=== PATIENT | male | born 1945 | race Caucasian/White ===

== ENCOUNTER 2019-02-05 09:45 | Inpatient (IN) | payer MEDICARE, SELFPAY ==
[2019-01-23 08:51] VITALS: BMI 27.6
[2019-02-05] VITALS (13 sets, daily range): BP systolic 100–134; BP diastolic 53–83; PULSE 61–75; RESP 12–20; TEMP 35.8–36.8; O2SAT 97–99; BMI 25.9
--- NOTE | 2019-02-05 | DI.RAD.S_ITS ---
PROCEDURE: XR HIP W PEL IF DONE LT 2V INDICATIONS: TOTAL HIP ARTHROPLASTY ANTERIOR APPROACH TECHNIQUE: 2 view(s) of the hip acquired. COMPARISON: None. FINDINGS: Bones: Patient is undergoing left total hip arthroplasty, with initial hardware components in expected positions. The hip joint appears congruent. The visualized bony structures appear intact. Soft tissues: Overlying postoperative changes are noted. No suspicious soft tissue densities. IMPRESSION: Normal anatomic alignment in preparation for placement of the final components of the left total hip arthroplasty. Dictated by: Quinn Cortes M.D. on 02/05/2019 at 17:47 Approved by: Quinn Cortes M.D. on 02/05/2019 at 17:48
--- NOTE | 2019-02-05 09:18 | DI.RAD.S_ITS ---
PROCEDURE: XR HIP W PEL IF DONE LT 2V INDICATIONS: total left hip TECHNIQUE: AP pelvis and lateral view of the left hip acquired. COMPARISON: [facility], YESSICA, XR HIP W PEL IF DONE LT 2V, 02/05/2019, 14:29. FINDINGS: Bones: Patient is status post left hip arthroplasty, with hardware components in expected positions. The hip joint appears congruent. The visualized bony structures appear intact. Soft tissues: Overlying postoperative changes are noted. No suspicious soft tissue densities. IMPRESSION: Normal alignment established after placement of spinal components of left total hip arthroplasty. Dictated by: Quinn Cortes M.D. on 02/05/2019 at 17:49 Approved by: Quinn Cortes M.D. on 02/05/2019 at 17:49
[2019-02-05] MEDS: LACTATED RINGERS 1,000 ML 42 ML IV ×2 (10:44→15:57)
[2019-02-05] MEDS: VANCOMYCIN 1,000 MG/200 ML PIGGYBACK 200 MG IV (10:44)
[2019-02-05] MEDS: MELOXICAM 7.5 MG TABLET 15 MG PO (10:54)
[2019-02-05] MEDS: PREGABALIN 75 MG CAPSULE PO (10:55)
[2019-02-05] MEDS: ACETAMINOPHEN 325 MG TABLET 975 MG PO ×2 (10:55→22:53)
--- NOTE | 2019-02-05 11:39 | PM.PREOP ---
Pre-operative Note Interval Note History & Physical reviewed/Exam performed by Physician: Yes Changes to H&P: No
--- NOTE | 2019-02-05 11:42 | P.OP_ITS ---
Operative Date/Time/Diagnoses Date of procedure: 02/05/19 Time of procedure: 11:59 Pre-op diagnosis: left hip OA Post-op diagnosis: same Procedure & Clinicians Procedure: Left total hip arthroplasty anterior approach Same procedure as scheduled: Yes Indications: The patient has had progressively worsening left hip pain with radiographic changes consistent with arthritis. Non-operative management has failed and the patient has requested total hip replacement. The risks, benefits and alternatives to surgery were discussed with the patient prior to proceeding. Risks discussed included, but were not limited to, failure to relieve pain, leg length discrepancy, dislocation, stiffness, infection, nerve damage, deep venous thrombosis, pulmonary embolism, stroke, coma, heart attack, permanent paralysis and , as well as the potential need for eventual revision of the prosthetic. Surgeon: Clary Chance Boating Safety Officer: Gary Hemphill Anesthesia Type: General and Spinal Operative Notes Findings: Severe left hip osteoarthritis, good quality bone, acceptable stability Closure Type: primary Specimen(s): none sent Prosthetic devices, grafts, tissues, transplants, or devices: Chance [employer] Nephew 54 R3 cup, size 7 standard offset anthology stem, 36 by +4 femoral head, 125 mm screw Estimated Blood Loss (mL): 250 Blood products transfused: none Procedure in detail: The patient was brought to the operating room. Patient was carefully positioned in the supine position. Time-out was performed and antibiotics were given. Anesthesia was induced. He was positioned in the on the table in order to allow hyperextension of the hip. The left lower extremity was prepped and draped in a standard sterile fashion. An anterior left hip incision was made 1 fingerbreadth lateral to the anterior superior iliac spine and extended distally towards the greater trochanter. Dissection was carried out through skin and subcutaneous tissues. The skin and subcutaneous tissues were carefully injected with Marcaine with epi. Superficial hemostasis was achieved. The fascia over the tensor fascia juma was defined and incised with a knife. Two Allis clamps were used to grasp the fascia. Tensor fascia juma was retracted laterally. A gelpi retractor was placed. Dissection was carried out down along the neck. The circumflex vessels were carefully identified and cauterized with the Aqua Mantis. There was good visualization of the femoral neck. A Cobra was placed superior to the neck and the gluteus fibers were carefully stripped from that superior aspect of the capsule. A 2nd retractor was placed along the inferior aspect of the neck. The rectus insertion along the capsule was partially released. A 3rd retractor that was then gently placed over the rim of the acetabulum under the rectus. Capsule was carefully incised and released from the intertrochanteric line circumferentially superior to the mid sagittal line and inferiorly to the mid sagittal line until the lesser trochanter was palpable. A tag stitch was placed both in the superior and inferior limb of the capsular insertion. Along the acetabulum capsule was also released up to the mid sagittal 12:00 position. A portion of the labrum was resected. A saw was used to perform an osteotomy at the level of the intertrochanteric line and the junction of the superior femoral neck leaving approximately 1 finger breath of residual inferior neck above the lesser trochanter. A 2nd cut was made along the femoral neck at the base of the head and a napkin ring of neck was removed. Corkscrew was placed in the femoral head and the head was removed without difficulty. Retractors were then repositioned around the acetabulum. Residual labrum was resected and additional osteophytes were removed. A reamer that was 4 mm below the templated size was placed by hand in the acetabulum and it was reamed to centralize the acetabulum. It was then reamed up to 2 under the templated size and fluoroscopy was brought in to confirm the position of the reaming and depth of reaming. I reamed 1 under the anticipated size.. A trial cup was placed and noted that it was appropriately sized and fluoroscopy confirmed position and depth. The component was open and inserted without difficulty fluoroscopic imaging was used to confirm that the cup had been adequately seated and was well positioned. A single supplemental screw was placed to further secure the cup. Neutral poly liner was placed. The cup was tested and noted to be stable. Attention was then directed to the femur. The femur was gently hyperextended additional capsular release was performed as needed in order to allow adequate visualization of the proximal femur with elevation of the femur. Patient was placed in a hyperextended slightly abducted position with maximum external rotation. Box osteotome was used to check for any residual neck as well as sclerotic bone along the trochanter. [place]owa pepper was placed in the femur. Additional broaching was performed. Canal finder was used to determine the alignment of the canal and position. Size 1 broach was placed. The canal was then appropriately broached up to the templated size as long as there was adequate stability of the broach and serial advancement of the broach without excessive impingement. Specific attention was directed at avoiding varus attempting to direct the distal aspect of the broach more anteriorly and avoidin g excessive anteversion. Trial reduction showed acceptable range of motion, good stability, no posterior impingement, mu-ism of leg length and appropriate lateral shuck. I also hyperflexed the hip and checked that there was no impingement anteriorly and there was good stability with flexion, abduction and internal rotation. Marcaine and Exparel were injected.. The stem was placed without difficulty. Repeat trial reduction and x-ray showed acceptable overall position, length, and no evidence of the femoral fracture. Final head was placed. Wound was meticulously irrigated with normal saline. The hip was reduced and additional Exparel and Marcaine were injected. The capsule was closed with interrupted nonabsorbable sutures. The fascia of the tensor was closed with interrupted and running Vicryl. No drain was placed. Any tensor fascia juma muscle that appeared to be contused or injured which was a minimal amount was carefully resected. Capsule around the tensor was injected with Exparel and Marcaine. The skin was closed with barbed stitches for the subcutaneous tissue and skin. We also used surgical glue. The wound was dressed sterilely. It was meticulously irrigated with normal saline. Patient was transferred to recovery room in satisfactory condition. Complications: none Condition: stable Disposition: Acute Care Plan for aftercare: The patient will be maintained on a standard total hip replacement protocol with weight bearing as tolerated and anterior hip precautions. The patient will receive Aspirin and sequential compression devices for DVT prophylaxis. The patient will be discharged home when safe for the home environment.
[2019-02-05] MEDS: CEFAZOLIN 2 GM/100 ML FROZ.PIGGY IV ×2 (12:35→22:53)
--- NOTE | 2019-02-05 13:25 | SUR.OPER ---
Supine on [place] table, head on the foam. Iliac crest at the bottom of the table. Right arm secured on arm board <90 degrees abduction, left arm padded and secured across chest. Both feet wrapped in web roll and coban and secured in boots.
[2019-02-05] MEDS: BUPIVACAINE 0.25% W/ EPI 30 ML VIAL 60 ML INJ (13:34)
[2019-02-05] MEDS: BUPIVACAINE LIPOSOME 266 MG/20 ML VIAL INJ (13:35)
[2019-02-05] MEDS: TRANEXAMIC ACID 1,000 MG VIAL 1000 MG INJ ×2 (13:36→15:58)
--- NOTE | 2019-02-05 14:47 | SUR.OPER ---
Pt has a black toe nail on big toe, observed during positioning.
[2019-02-05] MEDS: LACTATED RINGERS 1,000 ML 125 ML IV (19:02)
[2019-02-05] MEDS: DOCUSATE 100 MG CAPSULE PO (22:53)
[2019-02-05] MEDS: ASPIRIN EC 81 MG TABLET PO (22:53)
--- NOTE | 2019-02-05 23:26 | PC.NURSE ---
Evening shift: Pt. received from PACU approximately 1720. A&Ox3. VSS. Denies pain. Notes decreased sensation and movement below the waist extending down both lower extremities. Pulses intact, good cap refill, absence of edema. [place] patient. Pt stood at bedside with walker and RN assist. Continued to deny pain. Moved well and bore weight appropriately. No urge to urinate post-operatively. Bladder scan demonstrated 610ml. Attempted to straight cath with 16 Fr but was unable to advance catheter. Attempted again with 14 Fr Coude; still unable to advance. specimen collector was successful in placing in-and-out, with 825 ml output. Pt. tolerated well.
[2019-02-06 00:26] VITALS: BP 107/74; PULSE 71; RESP 18; TEMP 36.4; O2SAT 97
--- NOTE | 2019-02-06 01:04 | PC.NURSE ---
Addendum entered by Kaitlin Driscoll R.N. 02/06/19 06:35: Has been unable to urinate all night; even sat on edge of bed without success. Gotten up to bathroom and was able to urinated 350cc. Addendum entered by Kaitlin Driscoll R.N. 02/06/19 05:08: 0400 Gotten up out of bed and walked with walker 3 times around room with walker and 2 assist. Is unsteady on feet. Denies any pain. Original Note: Patient is alert and oriented but seeming a little anxious. Breath sounds CTA with RA sat of 97-99%; on continuous pulse oximetry per epidural protocol. HRR. Denies nausea. BT hypoactive; states he is passing flatus. Problem with urinary retention on previous shift necessitating straight cath and has not voided since. Aquacel dressing to anterior left hip is CDI. Denies pain but accepted ice pack for comfort. States he still has residual numbness in left anterior thigh and groin area but otherwise CMS intact; does have chronic numbness in anterior left foot which is unchanged. Is able to lift left leg off bed even against resistance. Moving self in bed. Wide awake watching TV and working with I.S. SCD's are on. Fall risk score is moderate; bed alarm is activated.
[2019-02-06] MEDS: LACTATED RINGERS 1,000 ML 125 ML IV (03:09)
[2019-02-06 03:40] VITALS: BP 108/75; PULSE 62; RESP 20; TEMP 36.6; O2SAT 99
[2019-02-06] MEDS: CEFAZOLIN 2 GM/100 ML FROZ.PIGGY IV (05:03)
[2019-02-06 05:57] LABS: Hematocrit 35.6 % (41-53)
--- NOTE | 2019-02-06 07:36 | P.DS_ITS ---
History of Present Illness Date Patient Seen: 02/06/19 Time Patient Seen: 07:35 Chief complaint: [id number] Narrative: Please see HPI previously recorded in chart. Discharge Providers Date of admission: 02/05/19 09:45 Discharge Date: 02/06/19 Primary care physician: Rolly Giang MD Consults: 01/23/19 09:43 Consult to Project Internship Routine Comment: Pt doesn't drive, recovering recent stroke 02/05/19 09:18 Consult to Anesthesiology Routine Comment: Consulting Provider: Anesthesiologist Reason for consultation: Regional block for post operative pain control 02/05/19 18:12 Consult to Discharge Planning Routine Comment: Consult to Physical Therapy Evaluate & Treat Comment: Physician Instructions: post op TOREY protocol Consult to Respiratory Therapy Evaluate & Treat Comment: Physician Instructions: Evaluate and treat Discharge provider: Drai Hoff PA-C Summary Discharge Diagnosis: s/p right anterior hip arthroplasty Hospital Course: The patient has had progressively worsening left hip pain with radiographic changes consistent with arthritis. Non-operative management has failed and the patient has requested total hip replacement. The risks, benefits and alternatives to surgery were discussed with the patient prior to proceeding. Risks discussed included, but were not limited to, failure to relieve pain, leg length discrepancy, dislocation, stiffness, infection, nerve damage, deep venous thrombosis, pulmonary embolism, stroke, coma, heart attack, permanent paralysis and , as well as the potential need for eventual revision of the prosthetic. After informed consent was obtained patient was taken to the operating room and underwent right anterior hip replacement with Dr. Chance which he tolerated well with no complications. Pain has been minimal and well controlled. He has mobilized about the room and to the bathroom. He has a good support system at [facility]. Voiding independently. He has supply of all of his post operative medications. He is medically stable for discharge to home later today pending clearance by physical therapy. Status at Discharge Cognitive/behavioral status at discharge: oriented Functional status at discharge: uses cane/walker Overall status at discharge: patient is progressing back to baseline Exam Vital Signs (past 8 hours): - 02/06/19 00:26 02/06/19 03:40 Temperature 97.5 F L 97.8 F Pulse Rate 71 62 Respiratory Rate 18 20 Blood Pressure 107/74 108/75 Pulse Oximetry 97 99 Oxygen Delivery Method Room Air Narrative Exam Narrative: 73 year old male resting comfortably in bed. Alert and oriented in no acute distress. Dressing in place over right hip is CDI. SILT. Intact flexion/extension of the ankle. Symmetric pedal pulses. Calves soft, compressible. Objective Labs Result Diagrams: 02/06/19 05:49 Labs: Laboratory Results - last 24 hr 02/06/19 05:49 Hgb 12.0 L Hct 35.6 L Discharge Plan Discharge Plan Patient Disposition: Home Discharge comment: After stairs with PT Discharge Med Rec/Prescriptions Prescriptions: New aspirin 81 mg Tablet,Delayed Release (Dr/Ec) 81 mg PO BID Qty: 60 RF: 0 oxycodone 5 mg Tablet 5 mg PO Q3HR PRN (Reason: Pain, Moderate (4-6)) Qty: 1 RF: 0 Continued doxycycline hyclate 100 mg Capsule 100 mg PO DAILY RF: 0 meloxicam 15 mg Tablet 15 mg PO DAILY RF: 0 acetaminophen [Tylenol Extra Strength] 500 mg Tablet 1,000 mg PO DAILY RF: 0 finasteride 5 mg Tablet 5 mg PO DAILY RF: 0 Follow up/Referrals: Rolly Giang MD [Primary Care Provider] - Clary Chance MD [Physician] - Provider Discharge Instructions Diet: Diet as Tolerated Activity: Weight bear as tolerated. Use front wheel walker for support. Cold/Heat Therapy: Ice packs as needed. Skin/Wound/Dressing Care Report to your healthcare provider any signs of infection, such as:: chills, fever, night sweats, unusual drainage and unusual redness Dressing: Please leave dressing in place, it will be removed at 2 week post op visit. If dressing becomes saturated please call the office. Visit Report/Discharge Packet Instructions: DI for Hip Replacement Discharge Data Primary Care Provider: Rolly Giang Attending Provider: Clary Chance Admit Date/Time: 02/05/19 09:45
[2019-02-06 08:00] VITALS: BP 109/70; PULSE 70; RESP 15; TEMP 36.7; O2SAT 98
[2019-02-06] MEDS: FINASTERIDE 5 MG TABLET PO (09:24)
[2019-02-06] MEDS: DOCUSATE 100 MG CAPSULE PO (09:26)
[2019-02-06] MEDS: DOXYCYCLINE HYCLATE 100 MG TABLET PO (09:27)
[2019-02-06] MEDS: MELOXICAM 7.5 MG TABLET 15 MG PO (09:27)
[2019-02-06] MEDS: ASPIRIN EC 81 MG TABLET PO (09:27)
[2019-02-06] MEDS: ACETAMINOPHEN 325 MG TABLET 975 MG PO (09:27)
[2019-02-06] MEDS: SODIUM CHLORIDE 0.9% FLUSH 10 ML IV (09:28)
--- NOTE | 2019-02-06 10:41 | CM.DANOTE ---
DCP/Assessment: Reviewed chart. Patient is a 73yr old male admitted [facility] for elective left TOREY performed on 02-05-[address] Chance. PCP is Dr. Giang. Primary payor is 1)Medicare 2)[facility]. Met with patient explained CM/SW role. Patient alert and oriented at time of visit, sitting in recliner. Patient reports that he resides with his spouse/Lauren and hopes to d/c home today after seen by therapy. Patient reports that he has all needed DME and outpatient therapy already arranged. [facility] outpatient [facility]). Notified patient that CM team would continue to follow if needs were to arise. Patient appreciative. P: Home when medically stable. PANDA Chavez Discharge Planning/Care Management CM Discharge Assessment Start: 02/06/19 10:38 Freq: Status: Active Protocol: Document 02/06/19 10:39 KJS (Rec: 02/06/19 10:40 [id number]) Discharge Planning Assessment Assigned Layout Designer PANDA Chavez Contact Information Lauren Guerra (spouse) [phone] Advance Directives? Yes Advance Directives on File No History Provided By Patient Medical Record Prior Living Arrangements House Household Members spouse Type of transporation used prior to Drives own vehicle admit Independent with ADL's Yes Is patient alert and oriented? Yes Caregiver for Another No DME Already Rented / Owned FWW / Walker Cane Patient/Family Preference OP PT Therapy Barriers to Discharge No Whiteboard Updated in Patient Room with Yes name and ext. # of Layout Designer Pre-Anesthesia Assessment Start: 01/23/19 08:51 Freq: Status: Complete Protocol: Document 01/23/19 08:51 CAB (Rec: 01/23/19 09:43 CAB [id number]) Pre-Anesthesia Assessment Patient Information Reviewed Via Phone Assessment Assessment Completed With Patient Diagnostic Results BMP/CMP CBC EKG Urinalysis Comment Outside labs/EKG scanned to record Primary Care Provider Rolly Giang Seen Specialist in Last 12 Months Yes Specialist Seen Orthopedist Primary Language Haitian Cattle Examiner Required No Height 175.26 cm Weight 84.822 kg Body Mass Index (BMI) 27.6 Hearing Ability Normal Visual Assist Glasses Dentition Type Teeth, Natural Present Barriers to Learning Visual Other Aids No Hx Anesthesia Reactions No Hx Family Anesthesia Reaction No Hx Malignant Hyperthermia No Hx Blood Transfusions No Anesthesia Review Requested No Director Of Rehabilitation And Wellness Yes alcohol intake current alcohol intake frequency a few times a month Alcohol Intake Frequency Other: Heavy drinking in past, age 50 -60s Smoking Status Never smoker Substance Use Type does not use Pain Present Pain Reported Musculoskeletal Symptoms Abnormal Gait Difficulty Walking Joint Pain Muscle Weakness Myalgias Numbness History of Falling (Recent or History of No ) Patient is completely paralyzed or No completely immobile Prosthesis or Orthotic Device Cane Front Wheel Walker Mental Status Oriented to own ability Is patient on oxygen? No Does patient have EDWARDS/SOB Yes: Chronic Hx Sleep Apnea No Currently Taking a Beta Rod No Can You Climb a Flight of Stairs Without No SOB Hx Chest Pain No Hx SOB Yes: Chronic Hx Syncope or Dizziness No Anti-Coagulant Therapy No Has a Steward[employer] Dining Car No Cardiac Testing No Hx Pacemaker/ICD No Pacemaker Rep Required? No Diet Type At Home Regular Low Sodium dysphagia No Bladder Pattern Retention Urinary Catheter Present No Hx Urinary Self Catheterization No Diabetes No HgbA1C 5.4 Date 01/05/19 Hx Drug Resistant Organism No Presence of External or Internal Medical No Devices Have you traveled outside the [facility] in the last 30 days? Marital Status Lives With spouse Prior Living Arrangements House Number of Floors (Floors) Two Floors Support System Child/Children Spouse Does the Patient Have Assistance After Yes Surgery Patient Discharge Plan Description Return Home Comment had a stroke 11/16/18, improving Feels Safe in Current Environment Yes Been Physically Hurt or Threatened By a No Person in Current Environment Do you have thoughts of harming yourself None or others? Are you currently considering suicide? No Do you have a plan to hurt yourself or No Plan others? Do You Have Any Spiritual Beliefs That No May Affect Your HC Choices? Do You Have Any Cultural Practices That No May Affect Your HC Choices? Comment Radha Who Can We Speak to About Patient's Care Family, friends Identifying Code for Release of Patient Declines to issue Information Health Care Proxy/Next of Kin Lauren () Health Care Proxy Emergency Contact Name Lauren () Emergency Contact Advance Directives? Yes Advance Directives on File No Requested Patient Bring Advanced Yes Directives DOS PAC Instructions Durable medical equipment Medications to take/avoid Nasal antibiotic No ETOH/petroleum product on skin DOS NPO Post-op transportation Pre-surgical wash Sturdy shoes/comfortable clothes Do not bring valuables and remove jewelry
--- NOTE | 2019-02-06 11:36 | PT.IIE ---
Current Diagnoses Unilateral primary osteoarthritis, left hip (02/05/19) Pain in left hip (02/05/19) Pain in left knee (02/05/19) Surgery Performed Operation Date: 02/05/19 12:00 Actual Procedures p Total Hip Arthroplasty/Anterior Approach(Left) - Clary Chance MD Surgical History (Last Updated 01/23/19 @ 09:19 by Swapna Cortes RN) History of arthroplasty of left knee (Acute ~2006) Hx of arthroscopy of left knee (Acute) Hx of bilateral cataract extraction (Acute) Hx of prostatectomy (Acute) Hx of tonsillectomy (Acute) Medical History (Last Updated 01/23/19 @ 09:19 by Swapna Cortes RN) Arthritis (Acute) Asthma (Acute) Easy bruisability (Acute) Elevated liver enzymes (Acute) Numbness (Acute) Osteoarthritis (Acute) Rheumatoid arthritis (Acute) Tinnitus (Acute) Physical Therapy Inpatient Evaluation/Re-Eval M1 PT/OT-IP Prior Functional Status Start: 02/06/19 08:44 Freq: NEEDED Status: Active Protocol: Document 02/06/19 11:06 AW (Rec: 02/06/19 11:36 AW [id number]) Medical Review Prior Functional Status Medical History Reviewed Yes Diet/Fluid Consistency Regular Communication Pt is able to make needs known . Mobility and Gait Pt reports increased reliance on SPC over past few weeks as pain increased considerably. Previously, he was independent with minimal use of SPC Activities of Daily Living and IADL's Pt reports independence with all ADL/IADL's Social History Household Members spouse Living Arrangements House Number of Floors (Floors) Two Floors Number of Stairs To Enter/Railing? 1 ASHISH with no railing; 13 steps with R rail ascending from main level to upstairs, but pt does not need to access 2nd level. 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 Spouse's ability to assist is limited due to recent stroke. M2 PT-IP Current Condition Start: 02/06/19 08:44 Freq: NEEDED Status: Active Protocol: Document 02/06/19 11:06 AW (Rec: 02/06/19 11:36 AW [id number]) Physical Therapy Current Condition Current Condition Evaluation Date 02/06/19 Treatment Diagnosis s/p L anterior TOREY; impaired transfers, gait, stairs Onset Date 02/05/19 Precautions Anterior Hip Precautions No Hip Extension No Hip External Rotation Weight Bearing Status Weight Bearing Status Weight Bear as Tolerated M3 PT-IP Subjective Start: 02/06/19 08:44 Freq: NEEDED Status: Active Protocol: Document 02/06/19 11:06 AW (Rec: 02/06/19 11:36 AW [id number]) Subjective Physical Therapy Visit Type Type Initial Evaluation Visit Start Time 09:54 Visit Stop Time 10:23 Total Visit Minutes 29 Physical Therapy Visit Comments Patient Comments Pt found sitting up in chair and beginning to stand as PT entered the room. Has been up with nursing and is ready to mobilize with PT Patient Goals Pt wishes to return home as soon as possible Therapy Pain Assessment Pain When Pain Assessed During Mobility Pain Present Pain Present Denied Pain M4 PT-IP Mobility and Gait Start: 02/06/19 08:44 Freq: NEEDED Status: Active Protocol: Document 02/06/19 11:06 AW (Rec: 02/06/19 11:36 AW [id number]) PT-Bed Mobility Assessment Rolling Level of Assist Independent Supine to Sit Supine to Sit Independent Sit to Supine Sit to Supine Independent Scooting Scooting to Edge of Bed Independent PT-Transfer Assessment Sit to and From Stand Sit to and from Stand Standby Assistance Use of Upper Extremities Equipment Transfer Assistive Device Gait Belt Front Wheeled Walker Transfers Transfer Destination Bed Chair Transfer Technique Stand Step Pivot Transfer Ability Level of Assist Standby Assistance Comments Mobility Comments Pt independent with all bed mobility. Required SBA and FWW for sit to stand and stand step pivot transfers to bed and to chair Gait Assessment Gait Gait Assistance Required: Standby Assistance Able to Maintain Weight Bearing Status Yes During Gait Assistive Devices Assistive Device Gait Belt Front Wheeled Walker Gait Deviations General Gait Pattern Within Normal Limits Factors Limiting Gait Function Factors Limiting Gait Function Poor Balance Comments Gait Comments Pt ambulated ~300 feet using FWW and requiring SBA. Pt advised to continue to use FWW even if he feels more stable for improved healing of surgical site and implants. Stair Climbing Assessment Evaluation Level of Assist On Stairs Standby Assistance Devices Stair Climbing Assistive Devices Left Railing Right Railing Technique/Endurance Stair Climbing Direction Ascend and Descend Stair Climbing Technique Step to Step Number of Steps Climbed 3 Query Text: Stair Climbing Set # Repetitions (reps) 2 Comments Stair Climbing Comments Pt required SBA and minimal verbal cues for sequencing PT-Balance Assessment Sitting Balance and Reactions Static Sitting Balance Ability Good Dynamic Sitting Balance Ability Good Standing Balance and Reactions Static Standing Balance Ability Good Dynamic Standing Balance Ability Good M5 PT-IP Objective Assessments Start: 02/06/19 08:44 Freq: NEEDED Status: Active Protocol: Document 02/06/19 11:06 AW (Rec: 02/06/19 11:36 AW [id number]) Orientation Orientation/Cognition Level of Alertness Alert Orientation Name Date Place Situation Language Function Ability No Deficits Noted Safety Awareness Decreased Safety Awareness Memory Description No Deficits Noted Comments Pt is somewhat impulsive as evidenced by observed attempt to stand with no SBA before PT entered the room Gross Range of Motion Upper Extremity ROM Assessment Within Functional Limits Lower Extremity ROM Assessment Within Functional Limits Strength Upper Extremity Strength Assessment Within Functional Limits Lower Extremity Strength Assessment Left Impaired Hip not assessed Knee grossly 5/5 Ankle grossly 5/5 Coordination Assessment Gross Coordination Gross Coordination WNL Sensation Assessment Sensation Gross Sensation WNL Muscle Tone Muscle Tone WNL Yes M6 PT-IP Treatment Start: 02/06/19 08:44 Freq: NEEDED Status: Active Protocol: Document 02/06/19 11:06 AW (Rec: 02/06/19 11:36 AW [id number]) Physical Therapy Treatment Exercises Exercises Ankle Pumps Gluteal Sets Quad Sets Heel Slides Education Education Provided Precautions Weight Bearing Status Post-Op Packet Safety M7 PT-IP Assessment and Plan Start: 02/06/19 08:44 Freq: NEEDED Status: Active Protocol: Document 02/06/19 11:06 AW (Rec: 02/06/19 11:36 AW [id number]) PT Summary Assessment and Plan Potential Rehabilitation Potential Excellent Status of Condition at Evaluation Stable Summary Impairments Strength Balance Transfers Gait Activity Tolerance Assessment Summary Pt is an active 72yo man with recent decline in mobility due to L hip pain associated with severe OA. He was seen on POD1 for PT evaluation following L TOREY with anterior approach. Therapist reviewed PT plan of care, post-op precautions, weightbearing status, and post-op exercises as noted above with patient verbalizing understanding and able to return demonstrate. Advised patient to discontinue pre-op exercises for now until he can be evaluated by his outpatient PT. Pt acknowledges pre-existing problems with balance; this therapist advised him to continue using FWW for the forseeable future. PT recommendation is for discharge to home with spouse assist as able. Goals Transfer Goal Independent Gait Goal Independent Four Wheel Walker Gait Distance 400 Other Goals Pt will ascend/descend 9 steps SBA with R rail ascending Days to Meet Goals 1 Frequency of Treatment Frequency Of Treatment Twice a Day Treatment Plan Physical Therapy Treatment Plan Bed Mobility Training Transfer Training Gait Training Therapeutic Exercise Balance Retraining Post Op Education Discharge Planning Hot or Cold Pack Neuromuscular Re-ed Coordination Retraining Manual Therapy Other Recommendations and Next Treatment focus on gait and stairs Focus Recommendations To Nursing Amount of Assist Needed Standby Assistance Discharge Recommendations PT Discharge Recommendations Home with Assistance Outpatient PT
--- NOTE | 2019-02-06 11:53 | PC.NURSE ---
Discharge: IV dc'd intact. Reviewed all d/c instructions thoroughly with patient and . Scripts filled prior to surgery. Patient has f/u appts all scheduled. Instructed re: s/sx with which would warrant a call to MD. All personal belongings collected and sent with patient. Wheeled out to private vehicle by this principal technical writer.
== END 2019-02-06 11:57 | disposition home or self-care (01) | DRG 470 ==
PROVIDERS: Admitting Provider Orthopaedic Surgery; PCP Internal Medicine; Visit Provider Orthopaedic Surgery
PROC: 0SRB02Z Replacement of Left Hip Joint with Metal on Polyethylene Synthetic Substitute, Open Approach (ICD-10-PCS; CPT 27130; principal; 2019-02-05 12:00)
DX: M16.12 Unilateral primary osteoarthritis, left hip (principal); Z96.652 Presence of left artificial knee joint
CPT/HCPCS: 36415; 73502; 76000; 85014; 85018; 94762; 97110; 97161; C1776; C9290; J0171; J0690; J1100; J2250; J2274; J2405; J2704; J3010